=== PATIENT | male | born 1995 | race Caucasian/White ===

== ENCOUNTER 2023-12-21 20:48 | Inpatient (IN) | payer OTHER, SELFPAY ==
[2023-12-21 20:50] VITALS: BP 169/113; PULSE 97; RESP 18; TEMP 37.1; O2SAT 98
--- NOTE | 2023-12-21 20:58 | ED.C_ITS ---
HPI - Psych 2 General: Chief Complaint: Psychiatric Symptoms Stated Complaint: MHE Time Seen by Provider: 12/21/23 20:51 Source: patient Mode of arrival: ambulatory Limitations: no limitations History of Present Illness: 28-year-old male he has been feeling inc reasingly paranoid he states that he feels like he is talking to people on the phone it is not there he states that he feels like he hears things at times. States that he did try to jump out of a car today because he felt like he was just supposed to. Patient appears very paranoid here he has no history of any psych admissions is not on any meds. Associated symptoms: Reports delusions Review of Systems 2 Const: Denies: fever(s), chills, body aches or change in appetite ENMT: Denies: throat pain or dental pain Card: Denies: chest pain Resp: Denies: dyspnea GI: Denies: abdominal pain, nausea, vomiting or diarrhea Musc: Denies: neck pain or back pain Skin/Breast: Denies: rash Neuro: Denies: headache(s) Psych: Reports: paranoia Physical Exam 2 Const: COMMON NORMALS: no acute distress, patient oriented x3 and healthy appearing HENMT: COMMON NORMALS: normocephalic and atraumatic HEAD & SCALP: n ormocephalic and atraumatic Neck/C-Spine: COMMON NORMALS: full ROM and supple Chest: COMMONS NORMALS: normal inspection of the chest Resp: COMMON NORMALS: normal respiratory effort Cardio: COMMON NORMALS: regular rate, regular rhythm and No murmurs present (Cardio) RATE: regular rate RHYTHM: regular rhythm Extremity: COMMON NORMALS: normal to inspection and full ROM Neuro: COMMON NORMALS: patient oriented x3, moves all extremities and no focal motor deficits Psych: ATTITUDE: Yes paranoid and Yes Withdrawn affect present A CTIVITY/MOTOR BEHAVIOR: Yes fidgeting THOUGHT CONTENT: No Suicidality present, No Homicidality present and Yes delusions Skin: COMMON NORMALS: no rashes or lesions noted and no wounds GENERAL SKIN EXAM: no rashes or lesions noted Course 2 Vital Signs: Vital signs: Vital Signs Temperature 98.7 F 12/21/23 20:50 Pulse Rate 97 12/21/23 20:50 Respiratory Rate 18 12/21/23 20:50 Blood Pressure 169/113 12/21/23 20:50 Pulse Oximetry 98 12/21/23 20:50 Oxygen Delivery Me thod Room Air 12/21/23 20:50 MDM - Psych Medical Decision Making Patient presents here with acute psychosis patient is medically cleared he is placed under 96-hour hold and spoke to the psychiatrist and will admit. Medical Records I reviewed the patient's medical records. Lab Data I reviewed the patient's lab results. 12/21/23 21:33 12/21/23 21:33 Laboratory Results WBC 6.00 10^3/uL (3.29-11.43) 12/21/23 21:33 RBC 4.99 10^6/uL (3.85-5.65) 12/21/23 21:33 Hgb 15.80 g/dL (11.27-16.99) 12/21/23 21:33 Hct 45.8 % (37-53) 12/21/23 21:33 MCV 91.8 fl (82-101) 12/21/23 21:33 MCH 31.7 pg (27-33) 12/21/23 21:33 MCHC 34.5 g/dL (30-55) 12/21/23 21:33 RDW 12.3 % (12.1-15.1) 12/21/23 21:33 Plt Count 223 10^3/cmm (157-399) 12/21/23 21:33 MPV 9.9 fL (7.4-10.4) 12/21/23 21:33 Neut % (Auto) 63.8 % 12/21/23 21:33 Lymph % (Auto) 25.0 % 12/21/23 21:33 [place] % (Auto) 10.0 % 12/21/23 21:33 Eos % (Auto) 0.5 % 12/21/23 21:33 Baso % (Auto) 0.5 % 12/21/23 21:33 Neut # (Auto) 3.83 10^3/uL (1.8-7.7) 12/21/23 21:33 Lymph # (Auto) 1.5 10^3/uL (0.8-4.8) 12/21/23 21:33 [place] # (Auto) 0.6 10^3/uL (0.2-0.9) 12/21/23 21:33 Eos # (Auto) 0.0 10^3/uL (0.0-0.8) 12/21/23 21:33 Baso # (Auto) 0.0 10^3/uL (0.0-0.1) 12/21/23 21:33 Nucleated RBC % (auto) 0 % 12/21/23 21:33 Nucleated RBCs # 0.0 /100WBC 12/21/23 21:33 Sodium 139 mmol/L (136-145) 12/21/23 21:33 Potassium 3.8 mmol/L (3.5-5.1) 12/21/23 21:33 Chloride 101 mmol/L (98-107) 12/21/23 21:33 Carbon Dioxide 25 mmol/L (22-29) 12/21/23 21:33 Anion Gap 16.8 (5-19) 12/21/23 21:33 BUN 7 mg/dL (6-20) 12/21/23 21:33 Creatinine 0.7 mg/dL (0.7-1.2) 12/21/23 21:33 GFR Calculation 135.3 mL/min (90-130) H 12/21/23 21:33 Glucose 98 mg/dL (65-115) 12/21/23 21:33 Calculated Osmolality 286 mOsm/kg (285-295) 12/21/23 21:33 Calcium 9.8 mg/dL (8.5-10.5) 12/21/23 21:33 Total Bilirubin 0.5 mg/dL (0.15-1.2) 12/21/23 21:33 AST 15 U/L (0-40) 12/21/23 21:33 ALT 15 U/L (0-41) 12/21/23 21:33 Alkaline Phosphatase 49 U/L (40-130) 12/21/23 21:33 Total Protein 7.9 g/dL (6.6-8.7) 12/21/23 21: Albumin 4.9 g/dL (3.5-5.2) 12/21/23 21:33 Globulin 3.0 g/dL (1.3-4.6) 12/21/23 21:33 Salicylates < 0.3 mg/dL (3-10) L 12/21/23 21: Acetaminophen < 5.0 ug/mL (10-30) L 12/21/23 21:33 Ethyl Alcohol < 10 mg/dL (0-10) 12/21/23 21:33 No radiology studies performed this visit Discharge Plan Discharge Condition: Stable Coding Level of Care Code ED [employer] for Barbara Bautista
[2023-12-21 21:39] LABS: Basophils % 0.5 %; Eosinophils % 0.5 %; Hematocrit 45.8 % (37-53); Lymphocytes # 1.5 10^3/uL (0.8-4.8); Mean Corpuscular HGB Conc 34.5 g/dL (30-55); Mean Corpuscular Hemoglobin 31.7 pg (27-33); Mean Corpuscular Volume 91.8 fl (82-101); Mean Platelet Volume 9.9 fL (7.4-10.4); Monocytes # 0.6 10^3/uL (0.2-0.9); Neutrophils # 3.83 10^3/uL (1.8-7.7); Neutrophils % 63.8 %; Nucleated Red Blood Cells % 0 %; Platelet Count 223 10^3/cmm (157-399); Red Blood Count 4.99 10^6/uL (3.85-5.65); Red Cell Distribution Width 12.3 % (12.1-15.1)
--- NOTE | 2023-12-21 21:51 | PC.NURSE ---
96 Hour Hold 96 hour hold rights read to patient at approximately 2110. Patient stated that he honestly just wanted to run away. Patient reassured by staff that no harm is intended for patient and that the care provide here is for his benefit.
[2023-12-21 21:58] LABS: Alanine Aminotransferase 15 U/L (0-41); Albumin Level 4.9 g/dL (3.5-5.2); Alkaline Phosphatase 49 U/L (40-130); Anion Gap 16.8 (5-19); Aspartate Amino Transferase 15 U/L (0-40); Blood Urea Nitrogen 7 mg/dL (6-20); Calcium 9.8 mg/dL (8.5-10.5); Carbon Dioxide 25 mmol/L (22-29); Chloride 101 mmol/L (98-107); Glomerular Filtration Rate 135.3 mL/min (90-130); Glucose 98 mg/dL (65-115); Osmolality Calculated 286 mOsm/kg (285-295); Potassium 3.8 mmol/L (3.5-5.1); Sodium 139 mmol/L (136-145); Total Bilirubin 0.5 mg/dL (0.15-1.2); Total Protein 7.9 g/dL (6.6-8.7)
[2023-12-21 22:00] LABS: Acetaminophen < 5.0 ug/mL (10-30); Alcohol Level < 10 mg/dL (0-10); Salicylate < 0.3 mg/dL (3-10)
[2023-12-21] MEDS: LORazepam 1 mg Tablet PO (22:20)
[2023-12-21] MEDS: metoprolol tartrate 25 mg Tablet PO (22:20)
[2023-12-21 22:51] VITALS: BP 153/87; PULSE 86; RESP 17; TEMP 36.6; O2SAT 98
[2023-12-21 22:59] VITALS: BP 143/99; PULSE 97; RESP 18; TEMP 37.1; O2SAT 98
[2023-12-22 06:00] VITALS: BP 124/76; PULSE 80; RESP 17; TEMP 36.5; O2SAT 97
[2023-12-22 08:40] LABS: Amphetamines Screen Urine Negative (Negative); Barbiturates Screen Urine Negative (Negative); Benzodiazepines Screen Urine Positive (Negative); Cocaine Screen Urine Negative (Negative); Opiate Screen Urine Negative (Negative); PCP Screen Urine Negative (Negative); THC Screen Urine Positive (Negative)
[2023-12-22 14:00] VITALS: BP 123/82; PULSE 91; RESP 16; TEMP 36.5; O2SAT 96
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
[2023-12-22] MEDS: trazodone 50 mg Tablet PO (21:19)
[2023-12-22 21:28] VITALS: BP 141/88; PULSE 72; RESP 17; TEMP 36.6; O2SAT 97
[2023-12-22] MEDS: paliperidone ER 3 mg Tablet PO (22:30)
[2023-12-23 06:00] VITALS: BP 113/65; PULSE 96; RESP 16; TEMP 36.6; O2SAT 98
[2023-12-23] MEDS: paliperidone ER 6 mg Tablet PO (08:26)
--- NOTE | 2023-12-23 09:11 | PC.NURSE ---
PT CONTINUES TO BE OBSERVED HAVING PARANOIA AND APPEARS GUARDED AND FRIGHTENED WHEN STAFF APPROACH HIM. DENIES PAIN. DENIES SI/HI AND AVH AT THIS TIME. PT AT TIMES DOES APPEAR TO BE RESPONDING TO SOME EXTERNAL STIMULI. PT DID TAKE MEDICATION THIS AM BUT DID QUESTION IF IT WAS THE SAME MEDICATIONS LAST NIGHT. ALL QUESTIONS ANSWERED AND SUPPORT WAS VOICED.
[2023-12-23 13:17] VITALS: BP 150/93; PULSE 96; RESP 20; TEMP 36.6; O2SAT 99
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
[2023-12-23] MEDS: hyDROXYzine 25 mg Capsule 50 MG PO (18:11)
[2023-12-23 19:56] VITALS: BP 126/85; PULSE 90; RESP 18; TEMP 36.7; O2SAT 97
[2023-12-23] MEDS: trazodone 50 mg Tablet PO (20:19)
[2023-12-24 06:00] VITALS: BP 118/73; PULSE 104; RESP 18; TEMP 36.4; O2SAT 97
[2023-12-24] MEDS: paliperidone ER 6 mg Tablet PO (08:11)
[2023-12-24] MEDS: nicotine 4 mg lozenge MUCOUS MEM ×2 (09:26→18:17)
--- NOTE | 2023-12-24 12:08 | CT_ITS ---
WS: [id number] CT HEAD TECHNIQUE: Noncontrast CT of the head obtained from the skullbase to the vertex. CLINICAL INFORMATION: new onset psychosis COMPARISON: None. DLP: 1028.[address] scans at [facility] use at least one of these dose optimization techniques: automated e xposure control; mA and/or kV adjustment per patient size (includes targeted exams where dose is matc hed to clinical indication); or iterative reconstruction. FINDINGS: No evidence of intracranial hemorrhage or mass effect. Ventricular system and basal cisterns are scruggs nt. No extra-axial fluid collections. No evidence of mass or mass effect. Normal zee-white different iation. Paranasal sinuses and mastoid air cells are well aerated. .Normal visualized soft tissues. IMPRESSION: 1. No evidence of intracranial hemorrhage or mass effect. 2. No acute intracranial findings.
--- NOTE | 2023-12-24 12:11 | PC.NURSE ---
CT patient going to have a CT.
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
[2023-12-24 13:35] VITALS: BP 145/74; PULSE 106; RESP 16; TEMP 36.6; O2SAT 99
[2023-12-24] MEDS: trazodone 50 mg Tablet PO (20:10)
[2023-12-24 22:00] VITALS: BP 147/86; PULSE 115; RESP 17; TEMP 36.8; O2SAT 98
[2023-12-25 06:00] VITALS: BP 129/82; PULSE 71; RESP 16; TEMP 36.3; O2SAT 98
[2023-12-25] MEDS: paliperidone ER 6 mg Tablet PO (08:03)
[2023-12-25] MEDS: nicotine 4 mg lozenge MUCOUS MEM ×3 (08:04→17:42)
--- NOTE | 2023-12-25 08:26 | PC.NURSE ---
During morning shift assessment, patient stated that everything is going okay . Patient denies anxiety and depression. Patient also denies HI, SI, AVH. Patient denies pain. Patient informed of staff present for any needs, understanding verbalized.
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
[2023-12-25 13:50] VITALS: BP 157/91; PULSE 120; RESP 17; TEMP 36.6; O2SAT 98
[2023-12-25] MEDS: trazodone 50 mg Tablet PO ×2 (20:20→21:33)
[2023-12-25 21:54] VITALS: BP 137/96; PULSE 108; RESP 18; TEMP 36.6; O2SAT 96
[2023-12-26 06:00] VITALS: BP 126/82; PULSE 105; RESP 16; TEMP 36.7; O2SAT 94
[2023-12-26] MEDS: paliperidone ER 6 mg Tablet PO (08:13)
--- NOTE | 2023-12-26 08:47 | PC.NURSE ---
PT APPEARS MORE RESPONSIVE THIS AM, DENIES PAIN. DENIES SI/HI AND AVH AT THIS TIME. RATES ANXIETY 03/29 DECLINES MEDICATIONS TO REDUCE ANXIETY. RATES DEPRESSION 11/27, STATES I JUST WANT TO LEAVE I AM SICK OF BEING HERE. PT WAS ENCOURAGED AND SUPPORTED BY RN, AND WAS REMINDING PT HE IS GETTING BETTER AND DOING WELL. PT SMILED AND SAID THANKS. MOOD IS NOTED TO BE DEPRESSED AT TIMES AND PT STATES HE IS HAVING ALOT OF ANXIETY ABOUT GETTING OUT OF HERE SOON. RN ASSURED PT THAT HE WILL BE DISCHARGED WHEN KNOWS HE STABLE AND READY TO LEAVE. ALL QUESTIONS WERE ANSWERED AND SUPPORT WAS VOICED.
[2023-12-26] MEDS: nicotine 4 mg lozenge MUCOUS MEM ×2 (11:04→18:09)
[2023-12-26 14:00] VITALS: BP 141/82; PULSE 103; RESP 20; TEMP 36.8; O2SAT 97
--- NOTE | 2023-12-26 17:18 | P.NPUPN_ITS ---
Subjective NPU 2 Subjective: 28-year-old male with a history of psych osis admitted with increased paranoia and difficulties with reported auditory hallucinations. Patient had endorsed heavy marijuana use for several years and states that he abruptly stopped about a month ago. He had reported a previous dislike for psychotropic medications as he had reported a family history of schizophrenia and it also reported a previous episode of psychosis 7 years ago. The patient had reported that he had been feeling a little better with his Invega but continued to report at times being distracted by his thoughts. Patient was informed that the Invega had potential benefits to help with both reducing and or eliminating the paranoia as well as potentially protecting him as this was used for maintenance treatment of schizophrenia as well. Patient had appeared somewhat isolative on the milieu. He had intimated that someone may have affected his memory but was unable to were unclear in elaborating whether this was an active process by another human being. He had acknowledged that chronic marijuana use may have affected his memory in general. Mental Status Exam 2 MSE Comments: This is an underweight white male, in hospital scrubs with adequate grooming but limited ye contact. No abnormal movements except for mild psychomotor retardation. He was cooperative with exam in mild distress. Speech was decreased in rate and volume with less latency and slowed responses. Mood described as a little better His affect was blunted. His Thought process was linear. Thought content: patient denied any suicidal or homicidal ideation, he did endorse some paranoid thinking and ideas of persecution. He denied auditory or visual hallucinations. He denies hearing voices currently and minimized visual hallucinations. Attention and concentration appear intact but challenged, and memory appears somewhat reliable but he does not trust his memories, but none were formally tested. He is alert and oriented times person and place. Insight and judgment are limited versus impaired. Impulse control was poor. Vitals/I&O/Wt Last Vital Signs Temp 98.2 F 12/26/23 14:00 Pulse 103 H 12/26/23 14:00 Resp 20 H 12/26/23 14:00 BP 141/82 12/26/23 14:00 Pulse Ox 97 12/26/23 14:00 O2 Del Method Room Air 12/26/23 06:00 Weight last 48 hrs Weight 63.503 kg Data NPU 12/21/23 21:33 12/21/23 21:33 A&P Assessment and plan (1) Psychosis: (2) Paranoia: (3) Anxiety: (4) Cannabis use disorder, severe, in early remission: Plan This is a 28-year-old white male unknown to the neuropsychiatric unit with history of depression anxiety and addiction who presents for his first inpatient hospitalization with thought disorder and psychosis that has likely been going on for at least 2 months if not significantly longer with recent loss of job, relationship problems with other psychosocial stressors secondary to these recent symptoms. Patient appears to be experiencing a thought disorder, possibly related to paranoia and psychosis. He has a history of depression and anxiety, and recent changes in his behavior and thought patterns suggest a possible exacerbation or evolution of these conditions. The patient's symptoms have ventured into the realm of psychosis. The patient's suspicion and paranoia levels are higher than average. The patient is questioning his memories, a classic symptom of psychosis. 1.? Continue invega 6mg at night. 2. Continue every 15 minute checks for safety. 3.? Encourage individual, group and milieu therapies. 4.? Encourage sober living treatment after discharge at the highest level of care to which he is willing to commit. Involuntary Hold Information 2 96 Hour Hold: 96 Hour Involuntary Admission: Yes 96 Hour Hold Ending Date: 12/27/23 96 Hour Hold Ending Time: 20:48 Attestations NPU 2 Medical Necessity Statement*: Inpatient hospitalization is medically necessary and the clinically appropriate intervention at this time. We will monitor and make medication changes as indicated.?The patient's likely length of stay 3 to 4 days. Coding Level of Care Code Acute Code for [facility] Diagnoses Psychosis F29 Paranoia F22 Anxiety F41.9 Cannabis use disorder, severe, in early remission F12.21
[2023-12-26] MEDS: trazodone 50 mg Tablet PO ×2 (20:14→21:24)
[2023-12-26 21:01] VITALS: BP 137/89; PULSE 126; RESP 18; TEMP 36.7; O2SAT 95
[2023-12-26] MEDS: hyDROXYzine 25 mg Capsule 50 MG PO (23:05)
[2023-12-27 06:00] VITALS: BP 122/77; PULSE 99; RESP 17; TEMP 36.6; O2SAT 97
[2023-12-27] MEDS: nicotine 4 mg lozenge MUCOUS MEM ×3 (08:10→17:41)
[2023-12-27] MEDS: paliperidone ER 6 mg Tablet PO (08:10)
--- NOTE | 2023-12-27 08:39 | PC.NURSE ---
PT REPORTS TO RN THAT I FEEL LIKE I NEED TO SAY NO TO ALL YOUR QUESTIONS BECAUSE ITS THE RIGHT ANSWER TO GET OUT OF HERE, BUT AT TIMES I DO HAVE THOUGHTS OF HARMING MYSELF. I DON'T SIT AND THINK OF A PLAN OR ACTING ON IT BUT I DO HAVE THOUGHTS I WOULD BE BETTER OFF NEVER WAKING UP, RN ASKED ABOUT PTS PARANOIA AND IF IT HAS IMPROVED. PT STATED YOU TERRIFY ME YOU ALL DO AND I START QUESTIONING EVERYTHING. RN PROVIDED SUPPORT AND EDUCATION AND LET PT KNOW ALL THE STAFF HERE IS AVAILABLE TO HELP HIM AND WANT HIM TO SUCEED BUT WE CAN NOT DO THAT IF HE IS NOT HONEST ABOUT HIS THOUGHTS AND FEELINGS. PT AGREED AND STATED HE FELT ALOT BETTER AFTER GETTING ALL THAT OUT OF THE WAY. PT WAS ENCOURAGED TO COME AND TALK TO STAFF IF SUICIDAL THOUGHTS BECAME WORSE OR HE FELT LIKE ACTING ON THOSE THOUGHTS. PT DID CONTRACT FOR Acer BUT CONTINUES TO STATE THESE ARE JUST THOUGHTS. PT WAS INFORMED ABOUT GROUP TIMES TODAY AND ENCOURAGED TO GO. PT STATES HE WILL AND IT HELPS BREAKING UP THE DAY AND BETTER THAN JUST LAYING HERE. PT DENIES HI AND AVH AT THIS TIME. DOES ENDORSE THOUGHTS OF HARMING SELF/PASSING SUICIDAL THOUGHTS. RATES ANXIETY 6/10 DECLINES MEDICATIONS TO REDUCE ANXIETY. RATES DEPRESSION 5/10. COMPIANT WITH MEDICATIONS. ALL QUESTIONS WERE ANSWERED AND SUPPORT WAS VOICED. DENIES PHYSICAL PAIN.
[2023-12-27 14:00] VITALS: BP 135/81; PULSE 109; RESP 17; TEMP 36.6; O2SAT 96
--- NOTE | 2023-12-27 17:20 | W.PM.NPUPNS ---
Subjective NPU Subjective: 28-year-old male with a history of psychosis admitted with increased paranoia and difficulties with reported auditory hallucinations. Patient had admitted that he had occasional fleeting suicidal thoughts to staff but stated that he had no plan. He reported that he was feeling that he may be ready to return home. He had reported not being distracted by any thoughts and denied any hallucinations currently. He had reported that he was feeling more optimistic and thought that he would return to [place] to resume work eventually. He had reported that his thoughts appeared to be his own and reported that he was feeling optimistic that he may be able to stop marijuana use and continue this medication (invega). Mental Status Exam MSE Comments: This is an underweight white male, in hospital scrubs with adequate grooming but limited eye contact. No abnormal movements except for mild psychomotor retardation. He was cooperative with exam in mild distress. Speech was normal in rate and volume with no clear latency issues today. Mood described as allright His affect was less restricted. His thought process was linear. Thought content: patient denied any suicidal or homicidal ideation, No overt paranoia was appreciated and no ideas of persecution today. He denied auditory or visual hallucinations. He denies hearing voices currently and minimized visual hallucinations. Attention and concentration appear intact but challenged, and memory appears somewhat reliable but he does not trust his memories, but none were formally tested. He is alert and oriented times person and place. Insight was improving and judgment was better. His mpulse control was improved. Vitals/I&O/Wt Last Vital Signs Temp 97.9 F 12/27/23 14:00 Pulse 109 H 12/27/23 14:00 Resp 17 12/27/23 14:00 BP 135/81 12/27/23 14:00 Pulse Ox 96 12/27/23 14:00 O2 Del Method Room Air 12/27/23 06:00 Weight last 48 hrs Weight 63.503 kg Data NPU 12/21/23 21:33 12/21/23 21:33 A&P Assessment and plan (1) Psychosis: (2) Paranoia: (3) Anxiety: (4) Cannabis use disorder, severe, in early remission: Plan This is a 28-year-old white male unknown to the neuropsychiatric unit with history of depression anxiety and addiction who presents for his first inpatient hospitalization with thought disorder and psychosis that has likely been going on for at least 2 months if not significantly longer with recent loss of job, relationship problems with other psychosocial stressors secondary to these recent symptoms. Patient appears to be experiencing a thought disorder, possibly related to paranoia and psychosis. He has a history of depression and anxiety, and recent changes in his behavior and thought patterns suggest a possible exacerbation or evolution of these conditions. The patient's symptoms have ventured into the realm of psychosis. The patient's suspicion and paranoia levels are higher than average. The patient is questioning his memories, a classic symptom of psychosis. 1.? Continue invega 6mg at night. 2. Continue every 15 minute checks for safety. 3.? Encourage individual, group and milieu therapies. 4.? Encourage sober living treatment after discharge at the highest level of care to which he is willing to commit. Will not pursue involuntary placement at this time. Involuntary Hold Information 96 Hour Hold: 96 Hour Involuntary Admission: Yes 96 Hour Hold Ending Date: 12/27/23 96 Hour Hold Ending Time: 20:48 Attestations NPU Medical Necessity Statement*: Inpatient hospitalization is medically necessary and the clinically appropriate intervention at this time. We will monitor and make medication changes as indicated.?The patient's likely length of stay 1-2days. Coding Level of Care Code Acute Code for [facility] Diagnoses Psychosis F29 Paranoia F22 Anxiety F41.9 Cannabis use disorder, severe, in early remission F12.21
[2023-12-27] MEDS: hyDROXYzine 25 mg Capsule 50 MG PO (20:09)
[2023-12-27] MEDS: trazodone 50 mg Tablet PO (20:09)
[2023-12-27 22:00] VITALS: BP 127/84; PULSE 89; RESP 16; TEMP 36.7; O2SAT 97
[2023-12-28 06:00] VITALS: BP 117/77; PULSE 90; RESP 17; TEMP 36.8; O2SAT 96
[2023-12-28] MEDS: paliperidone ER 6 mg Tablet PO (08:12)
[2023-12-28 11:07] VITALS: BP 117/77; PULSE 90; RESP 17; TEMP 36.8; O2SAT 96
--- NOTE | 2023-12-28 13:27 | P.NPUDS_ITS ---
Diagnoses at Discharge Discharge Diagnosis (1) Psychosis: Status: Acute (2) Paranoia: Status: Acute (3) Anxiety: Status: Acute (4) Cannabis use disorder, severe, in early remission: Status: Acute Reason for Visit Reason for Visit: [facility] Hospital Course Hospital Course During the hospitalization, the patient had routine laboratory studies which were within normal limits except for a few outliers.? Additionally, there was a general medical evaluation which was also within normal limits and revealed no new acute processes.? At the time of discharge, lethality was denied and psychosis was resolving.? Mood and anxiety were well managed.? The patient endorsed a plan to avoid all drugs of abuse and follow up with the aftercare recommendations of the treatment team.? The patient was evaluated and deemed to be absent credible lethality and had achieved the maximum benefit from an inpatient hospitalization, and so was discharged. ?CT of head revealed no acute findings. Patient was strongly encouraged to avoid THC as heavy use was possibl y a contributor to the presence of psychotic symptoms. Invega was initiated and titrated up to a dose of 6 mg daily with noted improvement in regards to the patient's paranoia and psychosis. He was agreeable to the use of Invega on an outpatient basis as he had plans to return to work and moved back to [place]. Involuntary Hold Information 96 Hour Hold: 96 Hour Involuntary Admission: Yes 96 Hour Hold Ending Date: 12/27/23 96 Hour Hold Ending Time: 20:48 Mental Status Exam MSE Comments: This is an underweight white male, in hospital scrubs with adequate grooming but limited eye contact. No abnormal movements except for mild psychomotor retardation. He was cooperative with exam in no acute distress. Speech was normal in rate and volume. Mood described as good His affect was still relatively flat. His thought process was linear. Thought content: patient denied any suicidal or homicidal ideation, No overt paranoia was appreciated and no ideas of persecution today. He denied auditory or visual hallucinations. Attention and concentration were fair. Recent and remote memory appeared grossly intact. He is alert and oriented x3. Insight was improving and judgment was better. His impulse control was improved. Discharge Data Studies Completed and Pending: Completed Studies During Hospitalization Category Date Time Status CT head wo con* 7 0450 Routine Cat Scan 12/24/23 12:08 Completed Laboratory Results WBC 6.00 10^3/uL (3.2 9-11.43) 12/21/23 21: RBC 4.99 10^6/uL (3.8 5-5.65) 12/21/23 21:33 Hgb 15.80 g/dL (11.27 -16.99) 12/21/23 21:33 Hct 45.8 % (37-53) 12/21/23 21:33 MCV 91.8 fl (82-101) 12/21/23 21: MCH 31.7 pg (27-33) 12/21/23 21: MCHC 34.5 g/dL (30-55) 12/21/23 21:33 RDW 12.3 % (12.1-15.1 ) 12/21/23 21: Plt Count 223 10^3/cmm (157 -399) 12/21/23 21: MPV 9.9 fL (7.4-10.4) 12/21/23 21: Neut % (Auto) 63.8 % 12/21/23 21: Lymph % (Auto) 25.0 % 12/21/23 21:33 Cannon % (Auto) 10.0 % 12/21/23 21:33 Eos % (Auto) 0.5 % 12/21/23 21: Baso % (Auto) 0.5 % 12/21/23 21: Neut # (Auto) 3.83 10^3/uL (1.8 -7.7) 12/21/23 21: Lymph # (Auto) 1.5 10^3/uL (0.8- 4.8) 12/21/23 21: Cannon # (Auto) 0.6 10^3/uL (0.2- 0.9) 12/21/23 21:33 Eos # (Auto) 0.0 10^3/uL (0.0- 0.8) 12/21/23 21: Baso # (Auto) 0.0 10^3/uL (0.0- 0.1) 12/21/23 21: Nucleated RBC % (a uto) 0 % 12/21/23 21: Nucleated RBCs # 0.0 /100WBC 12/21/23 21: Sodium 139 mmol/L (136-1 45) 12/21/23 21: Potassium 3.8 mmol/L (3.5-5 .1) 12/21/23 21:33 Chloride 101 mmol/L (98-10 7) 12/21/23 21:33 Carbon Dioxide 25 mmol/L (22-29) 12/21/23 21:33 Anion Gap 16.8 (5-19) 12/21/23 21:33 BUN 7 mg/dL (6-20) 12/21/23 21:33 Creatinine 0.7 mg/dL (0.7-1. 2) 12/21/23 21:33 GFR Calculation 135.3 mL/min (90- 130) H 12/21/23 21:33 Glucose 98 mg/dL (65-115) 12/21/23 21:33 Calculated Osmolal ity 286 mOsm/kg (285- 295) 12/21/23 21:33 Calcium 9.8 mg/dL (8.5-10 .5) 12/21/23 21:33 Total Bilirubin 0.5 mg/dL (0.15-1 .2) 12/21/23 21:33 AST 15 U/L (0-40) 12/21/23 21:33 ALT 15 U/L (0-41) 12/21/23 21:33 Alkaline Phosphata se 49 U/L (40-130) 12/21/23 21:33 Total Protein 7.9 g/dL (6.6-8.7 ) 12/21/23 21:33 Albumin 4.9 g/dL (3.5-5.2 ) 12/21/23 21:33 Globulin 3.0 g/dL (1.3-4.6 ) 12/21/23 21:33 Salicylates < 0.3 mg/dL (3-10 ) L 12/21/23 21:33 Urine Opiates Scre en Negative ng/mL (N egative) 12/22/23 07:37 Acetaminophen < 5.0 ug/mL (10-3 0) L 12/21/23 21:33 Ur Barbiturates Sc reen Negative ng/mL (N egative) 12/22/23 07:37 Ur Phencyclidine S crn Negative ng/mL (N egative) 12/22/23 07:37 Ur Amphetamines Sc reen Negative ng/mL (N egative) 12/22/23 07:37 U Benzodiazepines Scrn Positive ng/mL (N egative) H 12/22/23 07:37 Urine Cocaine Scre en Negative ng/mL (N egative) 12/22/23 07:37 U Marijuana (THC) Screen Positive ng/mL (N egative) H 12/22/23 07:37 Ethyl Alcohol < 10 mg/dL (0-10) 12/21/23 21:33 Vitals: Last Vital Signs Temp 98.3 F 12/28/23 11:07 Pulse 90 12/28/23 11:07 Resp 17 12/28/23 11:07 BP 117/77 12/28/23 11:07 Pulse Ox 96 12/28/23 11:07 O2 Del Method Room Air 12/28/23 06:00 Discharge Plan Discharge Patient Disposition: Home Condition: Stable Prescriptions: New paliperidone 6 mg Tablet Extended Release 24hr 6 mg PO DAILY 30 Days Qty: 30 1RF Invega 6 mg tablet extended release 24hr 6 mg PO DAILY Qty: 30 1RF Discharge Orders: Discharge Order (Routine); Ordered 12/28/23 Ordered By: Rush Barrera Referrals: [facility] [Other] - 1-3 days (Call or walk in for services within the next few days) Discharge Diet: Usual diet Discharge Activity: Resume usual activity Patient Instructions: Paliperidone (By mouth) (Invega), Paranoid Personality Disorder (DC), Anxiety (DC), Psychotic Disorder (DC), Opioid Safety Discharge Attestations NPU Time Spent in Discharge Care*: less than 30 min Specific Discharge Activities: Specific discharge activities: educating patient, discussing with machine adjuster leader case trim/social workers/dc planners and documenting/other paperwork Status at Discharge: Cognitive status at discharge: cognitively intact , Coding Level of Care Code Acute Code for [facility] Diagnoses Psychosis F29 Paranoia F22 Anxiety F41.9 Cannabis use disorder, severe, in early remission F12.21
== END 2023-12-28 11:45 | disposition home or self-care (01) | DRG 885 ==
LOC: ER 21:48 → NP 22:47
PROVIDERS: Admitting Provider Psychiatry & Neurology Psychiatry; Emergency Provider Emergency Medicine; Visit Provider Psychiatry & Neurology Psychiatry
DX: F29 Unspecified psychosis not due to a substance or known physiological condition (principal); F22 Delusional disorders; F41.9 Anxiety disorder, unspecified; F12.91 Cannabis use, unspecified, in remission
CPT/HCPCS: 36415; 70450; 80053; 80306; 80307; 85025; 97150; 97165; 99285